=== PATIENT | male | born 1975 | race African-American/Black ===

== ENCOUNTER 2020-10-24 05:25 | Inpatient (IN) | payer BC ==
[2020-10-23 10:06] VITALS: BMI 24.3
[~2020-10-24 05:25] MED LIST: VANCOMYCIN 1,000 MG VIAL (RESTRICTED TO ID ONLY) IVPB ONE
[2020-10-24] MEDS ORDERED: VANCOMYCIN 1,000 MG VIAL (RESTRICTED TO ID ONLY) ONE ×2 (07:16→11:40)
[2020-10-24] MEDS ORDERED: LIDOCAINE 1%/EPI 1:100000 (50 ML MULTI DOSE VIAL) ONE ×2 (07:16→11:12)
[2020-10-24] MEDS ORDERED: GENTAMICIN SO4 80 MG/2 ML VIAL ONE (07:16)
[2020-10-24] MEDS ORDERED: PROPOFOL 20 ML ONE (10:28)
[2020-10-24] MEDS ORDERED: ROCURONIUM BROMIDE 50 MG/5 ML SYRINGE ONE ×2 (10:28→12:12)
[2020-10-24] MEDS ORDERED: fentaNYL CITRATE 250 MCG/5 ML VIAL ONE ×2 (10:28→12:21)
[2020-10-24] MEDS ORDERED: MIDAZOLAM HCL 2 MG/2 ML SINGLE DOSE VIAL ONE (10:28)
[2020-10-24] MEDS ORDERED: NEOSTIGMINE METHYLSULFATE 0.5 MG/1 ML - 10 ML MDV ONE ×2 (10:53→15:27)
[2020-10-24] MEDS ORDERED: BACITRACIN 15 GM TUBE TOPICAL OINTMENT ONE (11:12)
[2020-10-24] MEDS ORDERED: TRANEXAMIC ACID 1000 MG/10 ML VIAL ONE (11:40)
[2020-10-24] MEDS ORDERED: ceFAZolin SODIUM 1 GM VIAL ONE (11:40)
[2020-10-24] MEDS ORDERED: ceFAZolin SODIUM 1 GM VIAL IVPB ONE (11:43)
[2020-10-24] MEDS ORDERED: VANCOMYCIN 1,000 MG VIAL (RESTRICTED TO ID ONLY) IVPB ONE (11:54)
[2020-10-24] MEDS ORDERED: HYDROmorphone HCl 2 MG/ML VIAL ONE (11:57)
[2020-10-24] MEDS ORDERED: LIDOCAINE 1%/EPI 1:100000 (50 ML MULTI DOSE VIAL) INF ONE (12:13)
[2020-10-24] MEDS ORDERED: TRANEXAMIC ACID 1000 MG/10 ML VIAL IVPB ONE (12:16)
[2020-10-24] MEDS ORDERED: BACITRACIN 50,000 UNITS VIAL TP ONE (12:25)
[2020-10-24] MEDS ORDERED: LABETALOL HCL 5 MG/1 ML (100MG/20 ML VIAL) ONE ×2 (12:28→15:52)
[2020-10-24] MEDS ORDERED: HYDROGEN PEROXIDE 473 ML PO ONE (12:45)
[2020-10-24] MEDS ORDERED: THROMBIN (BOVINE) 5,000 UNIT VIAL TP ONE ×2 (12:47)
[2020-10-24] MEDS ORDERED: BUPIVACAINE HCL/PF 0.5% (5 MG/ML) 30 ML VIAL IJ ONE ×2 (12:50→13:40)
[2020-10-24] MEDS ORDERED: BUPIVACAINE LIPOSOME/PF (EXPAREL) 266 MG/20 ML VIAL NR ONE ×2 (12:56→13:40)
[2020-10-24] MEDS ORDERED: GLYCOPYRROLATE 0.2 MG/1 ML VIAL ONE (14:11)
[2020-10-24] MEDS ORDERED: LORazepam 2 MG/ML SDV VIAL ONE (15:57)
[2020-10-24] MEDS ORDERED: LABETALOL HCL 5 MG/1 ML (100MG/20 ML VIAL) IVPUSH ONE ×2 (16:00→16:23)
[2020-10-24] MEDS ORDERED: ONDANSETRON 4 MG/2 ML VIAL IVPUSH PRN (16:17)
[2020-10-24] MEDS ORDERED: LORazepam 2 MG/ML SDV VIAL IVPUSH SCH (16:30)
[2020-10-24] MEDS ORDERED: diazePAM CARPU-JECT 10 MG/2 ML DISP.SYRIN IVPUSH ONE (16:30)
[2020-10-24] MEDS: ACETAMINOPHEN 1000 MG/100 ML VIAL (NON FORMULARY) IVPB SCH ×2 (16:30→22:00)
[2020-10-24] MEDS ORDERED: HYDROmorphone *PCA* 10MG/50ML DISP.SYRIN ONE (16:49)
[2020-10-24] MEDS: HYDROmorphone *PCA* 10MG/50ML DISP.SYRIN PCA SCH (17:00)
[2020-10-25] MEDS: ACETAMINOPHEN 1000 MG/100 ML VIAL (NON FORMULARY) IVPB SCH ×4 (04:38→22:59)
[2020-10-25] MEDS ORDERED: oxyCODONE HCL 5 MG TABLET PO PRN ×2 (08:51)
[2020-10-25] MEDS ORDERED: ONDANSETRON 4 MG/2 ML VIAL IVPUSH PRN (08:51)
[2020-10-25] MEDS ORDERED: HYDROmorphone HCl 2 MG/ML VIAL SQ PRN (08:51)
[2020-10-25] MEDS ORDERED: amLODIPine BESYLATE 5 MG TABLET (FP) PO SCH (10:00)
[2020-10-25] MEDS: LACTATED RINGERS SOLUTION 1,000 ML IV SCH ×2 (10:47→17:13)
[2020-10-25] MEDS: CEFAZOLIN 2 GM/D5W 2 GM/50 ML ML IVPB SCH ×3 (10:47→21:56)
[2020-10-25] MEDS ORDERED: NITROGLYCERIN 2% OINTMENT - 1GM PACKET TD PRN (12:28)
[2020-10-25 13:49] LABS: BASO % 0.2 % (0-2.0); HEMATOCRIT 35.4 % (35.4-49); HEMOGLOBIN 11.6 GM/dL (11.7-16.9); LYMPH % 7.8 % (8-40); MCHC 32.8 g/dl (32.0-35.9); MEAN CELL VOLUME 85.4 fl (80-96); MEAN PLT VOLUME 9.5 fl (7.5-11.1); MONO % 7.3 % (3.8-10.2); NEUT % 84.7 % (42.8-82.8); PLATELET COUNT 198 K/MM3 (134-434); RBC 4.14 M/mm3 (4.00-5.60); RDW 14.5 % (11.9-15.9); WHITE BLOOD COUNT 12.7 K/mm3 (4.0-10.0)
[2020-10-25 13:59] LABS: CHLORIDE 101 mmol/L (98-107); SODIUM 139 mmol/L (136-145)
[2020-10-25 14:01] LABS: ALBUMIN 3.4 g/dl (3.4-5.0); BLOOD UREA NITROGEN 16.1 mg/dL (7-18); CALCIUM 9.1 mg/dL (8.5-10.1); CO2 27 mmol/L (21-32)
[2020-10-25 14:02] LABS: GLUCOSE,RANDOM 108 mg/dL (74-106)
[2020-10-25 14:04] LABS: SGPT/ALT 22 U/L (13-61)
[2020-10-25 14:05] LABS: SGOT/AST 26 U/L (15-37)
[2020-10-25 14:06] LABS: BILIRUBIN,TOTAL 0.3 mg/dL (0.2-1); TOT PROT 6.2 g/dl (6.4-8.2)
[2020-10-25 14:07] LABS: ALK PHOS 57 U/L (45-117)
[2020-10-25 14:08] LABS: ANION GAP 10 MMOL/L (8-16); POTASSIUM 2.8 mmol/L (3.5-5.1)
[2020-10-25] MEDS ORDERED: PCA PUMP NR ONE (14:10)
[2020-10-25] MEDS: LOSARTAN POTASSIUM 50 MG TABLET PO SCH (14:13)
[2020-10-25] MEDS: HYDROmorphone *PCA* 10MG/50ML DISP.SYRIN PCA SCH (14:30)
[2020-10-25] MEDS: KCL 10 MEQ IVPB 10 MEQ/100 ML INFUS.BAG IVPB SCH ×2 (14:55→18:59)
[2020-10-25] MEDS: POTASSIUM CHLORIDE TABS 20 MEQ TABLET.ER (FP) PO SCH ×2 (17:14→21:55)
[2020-10-26] MEDS: ACETAMINOPHEN 1000 MG/100 ML VIAL (NON FORMULARY) IVPB SCH ×4 (04:08→22:34)
[2020-10-26] MEDS ORDERED: POTASSIUM CHLORIDE TABS 20 MEQ TABLET.ER (FP) PO ONE (07:44)
[2020-10-26] MEDS: HYDROmorphone *PCA* 10MG/50ML DISP.SYRIN PCA SCH ×2 (08:00→17:31)
[2020-10-26 08:45] LABS: POTASSIUM 3.7 mmol/L (3.5-5.1)
[2020-10-26 08:48] LABS: ALBUMIN 3.2 g/dl (3.4-5.0); BLOOD UREA NITROGEN 8.6 mg/dL (7-18); CALCIUM 8.9 mg/dL (8.5-10.1); MAGNESIUM 2.2 mg/dL (1.8-2.4)
[2020-10-26 08:51] LABS: CREATININE 0.9 mg/dL (0.55-1.3)
[2020-10-26 08:52] LABS: PHOSPHOROUS 2.3 mg/dL (2.5-4.9)
[2020-10-26 08:53] LABS: BILIRUBIN,TOTAL 0.5 mg/dL (0.2-1); TOT PROT 6.2 g/dl (6.4-8.2)
[2020-10-26] MEDS: KCL 10 MEQ IVPB 10 MEQ/100 ML INFUS.BAG IVPB SCH ×2 (09:31→11:06)
[2020-10-26] MEDS: amLODIPine BESYLATE 5 MG TABLET (FP) PO SCH (09:33)
[2020-10-26] MEDS: LACTATED RINGERS SOLUTION 1,000 ML IV SCH ×2 (09:33→11:07)
[2020-10-26] MEDS: LOSARTAN POTASSIUM 50 MG TABLET PO SCH (09:33)
[2020-10-26 13:35] LABS: BASO % 0.2 % (0-2.0); EOS % 1.4 % (0-4.5); HEMATOCRIT 33.1 % (35.4-49); HEMOGLOBIN 11.4 GM/dL (11.7-16.9); LYMPH % 13.5 % (8-40); MCHC 34.3 g/dl (32.0-35.9); MEAN CELL VOLUME 84.5 fl (80-96); MEAN PLT VOLUME 9.4 fl (7.5-11.1); MONO % 4.6 % (3.8-10.2); NEUT % 80.3 % (42.8-82.8); PLATELET COUNT 243 K/MM3 (134-434); RBC 3.92 M/mm3 (4.00-5.60); WHITE BLOOD COUNT 9.6 K/mm3 (4.0-10.0)
[2020-10-26] MEDS ORDERED: POTASSIUM PHOSPHATE 20 MM in SODIUM CHLORIDE 250 ML IVPB ONE (17:00)
[2020-10-27] MEDS: ACETAMINOPHEN 1000 MG/100 ML VIAL (NON FORMULARY) IVPB SCH ×4 (04:22→21:59)
[2020-10-27] MEDS: HYDROmorphone *PCA* 10MG/50ML DISP.SYRIN PCA SCH ×2 (06:59→17:51)
[2020-10-27] MEDS ORDERED: PCA PUMP NR ONE (07:01)
[2020-10-27 09:09] LABS: BASO % 0.3 % (0-2.0); EOS % 2.2 % (0-4.5); HEMATOCRIT 32.7 % (35.4-49); LYMPH % 11.8 % (8-40); MCH 28.5 pg (25.7-33.7); MCHC 33.5 g/dl (32.0-35.9); MEAN CELL VOLUME 85.1 fl (80-96); MEAN PLT VOLUME 9.1 fl (7.5-11.1); MONO % 7.4 % (3.8-10.2); NEUT % 78.3 % (42.8-82.8); PLATELET COUNT 196 K/MM3 (134-434); RBC 3.85 M/mm3 (4.00-5.60); RDW 14.3 % (11.9-15.9); WHITE BLOOD COUNT 8.3 K/mm3 (4.0-10.0)
[2020-10-27 09:27] LABS: POTASSIUM 3.7 mmol/L (3.5-5.1)
[2020-10-27] MEDS: LACTATED RINGERS SOLUTION 1,000 ML IV SCH (09:33)
[2020-10-27 09:37] LABS: BLOOD UREA NITROGEN 8.7 mg/dL (7-18); CALCIUM 8.6 mg/dL (8.5-10.1)
[2020-10-27 09:40] LABS: CREATININE 0.7 mg/dL (0.55-1.3); PHOSPHOROUS 3.2 mg/dL (2.5-4.9)
[2020-10-27] MEDS: amLODIPine BESYLATE 5 MG TABLET (FP) PO SCH (09:40)
[2020-10-27] MEDS: LOSARTAN POTASSIUM 50 MG TABLET PO SCH (09:40)
[2020-10-27 09:42] LABS: BILIRUBIN,TOTAL 0.5 mg/dL (0.2-1); TOT PROT 6.1 g/dl (6.4-8.2)
[2020-10-27] MEDS: diazePAM 5 MG TABLET PO PRN (21:59)
[2020-10-28] MEDS: ACETAMINOPHEN 1000 MG/100 ML VIAL (NON FORMULARY) IVPB SCH ×2 (04:00→13:45)
[2020-10-28] MEDS: HYDROmorphone *PCA* 10MG/50ML DISP.SYRIN PCA SCH (05:44)
[2020-10-28] MEDS ORDERED: PCA PUMP NR ONE ×2 (05:47→08:12)
[2020-10-28] MEDS ORDERED: HYDROmorphone HCl 2 MG/ML VIAL IVPB PRN (08:19)
[2020-10-28] MEDS ORDERED: DOCUSATE SODIUM 100 MG CAPSULE (FP) PO PRN (08:19)
[2020-10-28] MEDS ORDERED: oxyCODONE HCL 5 MG TABLET PO PRN (08:19)
[2020-10-28] MEDS: oxyCODONE HCL 5 MG TABLET PO PRN ×4 (09:36→21:49)
[2020-10-28] MEDS: amLODIPine BESYLATE 5 MG TABLET (FP) PO SCH (09:38)
[2020-10-28] MEDS: DOCUSATE SODIUM 100 MG CAPSULE (FP) PO SCH ×2 (09:38→21:49)
[2020-10-28] MEDS: LOSARTAN POTASSIUM 50 MG TABLET PO SCH (09:39)
[2020-10-28] MEDS: LACTATED RINGERS SOLUTION 1,000 ML IV SCH (09:41)
[2020-10-28] MEDS: HEPARIN NA (PORCINE) 5,000 UNITS/ML 1ML VIAL SQ SCH ×2 (13:00→21:48)
[2020-10-28] MEDS: ACETAMINOPHEN 325 MG TABLET (FP) PO SCH ×3 (13:44→23:44)
[2020-10-29] MEDS: diazePAM 5 MG TABLET PO PRN ×2 (01:59→11:45)
[2020-10-29] MEDS: oxyCODONE HCL 5 MG TABLET PO PRN ×3 (05:13→22:40)
[2020-10-29] MEDS: ACETAMINOPHEN 325 MG TABLET (FP) PO SCH ×4 (05:27→23:56)
[2020-10-29 08:46] LABS: POTASSIUM 3.7 mmol/L (3.5-5.1)
[2020-10-29 08:48] LABS: HEMOGLOBIN 11.7 GM/dL (11.7-16.9); LYMPH % 13.4 % (8-40); MCH 28.9 pg (25.7-33.7); MONO % 7.8 % (3.8-10.2); RBC 4.04 M/mm3 (4.00-5.60)
[2020-10-29 08:51] LABS: CALCIUM 8.7 mg/dL (8.5-10.1); MAGNESIUM 2.2 mg/dL (1.8-2.4)
[2020-10-29 08:52] LABS: BASO % 0.5 % (0-2.0); EOS % 3.6 % (0-4.5); HEMATOCRIT 34.1 % (35.4-49); MCHC 34.2 g/dl (32.0-35.9); MEAN CELL VOLUME 84.5 fl (80-96); MEAN PLT VOLUME 8.4 fl (7.5-11.1); NEUT % 74.7 % (42.8-82.8); PLATELET COUNT 284 K/MM3 (134-434); RDW 14.3 % (11.9-15.9); WHITE BLOOD COUNT 7.6 K/mm3 (4.0-10.0)
[2020-10-29 08:54] LABS: CREATININE 0.9 mg/dL (0.55-1.3); PHOSPHOROUS 4.2 mg/dL (2.5-4.9)
[2020-10-29 08:56] LABS: BILIRUBIN,TOTAL 0.5 mg/dL (0.2-1); TOT PROT 6.4 g/dl (6.4-8.2)
[2020-10-29] MEDS: amLODIPine BESYLATE 5 MG TABLET (FP) PO SCH (08:59)
[2020-10-29] MEDS: HEPARIN NA (PORCINE) 5,000 UNITS/ML 1ML VIAL SQ SCH ×2 (09:00→21:04)
[2020-10-29] MEDS: DOCUSATE SODIUM 100 MG CAPSULE (FP) PO SCH ×2 (09:00→21:04)
[2020-10-29] MEDS: LOSARTAN POTASSIUM 50 MG TABLET PO SCH (09:00)
[2020-10-29] MEDS ORDERED: MELATONIN 5 MG TABLETS PO ONE (21:06)
[2020-10-30] MEDS: oxyCODONE HCL 5 MG TABLET PO PRN ×2 (04:58→14:48)
[2020-10-30] MEDS: ACETAMINOPHEN 325 MG TABLET (FP) PO SCH (05:23)
[2020-10-30] MEDS: diazePAM 5 MG TABLET PO PRN (09:01)
[2020-10-30] MEDS: amLODIPine BESYLATE 5 MG TABLET (FP) PO SCH (09:01)
[2020-10-30] MEDS: DOCUSATE SODIUM 100 MG CAPSULE (FP) PO SCH (09:02)
[2020-10-30] MEDS: LOSARTAN POTASSIUM 50 MG TABLET PO SCH (09:02)
[2020-10-30] MEDS: HEPARIN NA (PORCINE) 5,000 UNITS/ML 1ML VIAL SQ SCH (09:02)
[2020-10-30 14:53] VITALS: BP 141/85; PULSE 86; TEMP 98.8
== END 2020-10-30 16:04 | disposition home or self-care (01) | DRG 465 ==
LOC: J2C 05:25 → J8W 19:55
PROVIDERS: ADMIT Neurological Surgery; ATTEND Student in an Organized Health Care Education/Training Program
PROC: 0QS004Z Reposition Lumbar Vertebra with Internal Fixation Device, Open Approach (ICD-10-PCS; 2020-10-24)
PROC: 01N10ZZ Release Cervical Nerve, Open Approach (ICD-10-PCS; 2020-10-24)
PROC: 0PSP34Z Reposition Right Metacarpal with Internal Fixation Device, Percutaneous Approach (ICD-10-PCS; 2020-10-24)
PROC: B01BZZZ Fluoroscopy of Spinal Cord (ICD-10-PCS; 2020-10-24)
PROC: 4A1004G Monitoring of Central Nervous Electrical Activity, Intraoperative, Open Approach (ICD-10-PCS; 2020-10-24)
PROC: BW1JZZZ Fluoroscopy of Upper Extremity (ICD-10-PCS; 2020-10-24)
PROC: 0RG2071 Fusion of 2 or more Cervical Vertebral Joints with Autologous Tissue Substitute, Posterior Approach, Posterior Column, Open Approach (ICD-10-PCS; principal; 2020-10-24 11:00)
PROC: 0JX70ZB Transfer Back Subcutaneous Tissue and Fascia with Skin and Subcutaneous Tissue, Open Approach (ICD-10-PCS; 2020-10-24 11:00)
DX: M47.812 Spondylosis without myelopathy or radiculopathy, cervical region (principal); M40.202 Unspecified kyphosis, cervical region; E87.6 Hypokalemia; D64.9 Anemia, unspecified; I10 Essential (primary) hypertension; S62.326A Displaced fracture of shaft of fifth metacarpal bone, right hand, initial encounter for closed fracture; X58.XXXA Exposure to other specified factors, initial encounter; Y93.9 Activity, unspecified; Y99.9 Unspecified external cause status; Y92.9 Unspecified place or not applicable
CPT/HCPCS: 36415; 71250-TC; 72050-TC-FY; 72125-TC; 73130-TC-LT-FY; 73130-TC-RT-FY; 76000-TC-FY; 80053; 83735; 84100; 85025; 86850; 86900; 86901; 94010; 94760; 97116-GP; 97162-GP; J0131; J1644

== ENCOUNTER 2022-12-08 15:00 | Emergency (ER) | payer OTHER ==
[2022-12-08 15:17] VITALS: RESP 18; TEMP 98.1; BMI 24.3
[2022-12-08] MEDS ORDERED: amLODIPine BESYLATE 5 MG TABLET (FP) PO ONE (16:05)
[2022-12-08] MEDS ORDERED: amLODIPine BESYLATE 5 MG TABLET (FP) ONE (16:09)
[2022-12-08 16:56] VITALS: BP 175/101; PULSE 69
== END 2022-12-08 17:12 | disposition home or self-care (01) ==
LOC: JER 15:00
DX: I10 Essential (primary) hypertension (principal)
CPT/HCPCS: 99283-25